=== PATIENT | female | born 1985 | race Caucasian/White ===

== ENCOUNTER 2017-01-14 17:46 | Emergency (ER) | payer BC ==
[~2017-01-14] VITALS: Ht 167.6 cm; Wt 98.9 kg
--- NOTE | ~2017-01-14 | EKG ---
[place] [address] [employer] 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
[2017-01-14 18:20] LABS: HEMOGLOBIN 12.5 gm/dL (12.0-15.0); MCHC 33.8 g/dL (28.0-37.0); MCV 79.8 fL (80.0-100.0); RBC 4.63 mil/uL (4.20-5.00); RDW 15.1 % (10.5-14.5); WBC 15.1 thou/uL (4.0-11.0)
[2017-01-14 18:23] LABS: ANION GAP 10 mmol/L (7-16); BUN 8 mg/dL (7-18); CALCIUM 9.1 mg/dL (8.5-10.1); CHLORIDE 104 mmol/L (98-107); CO2 24 mmol/L (21-32); CREATININE 0.8 mg/dL (0.6-1.0); GLUCOSE 126 mg/dL (74-106); POTASSIUM 3.8 mmol/L (3.5-5.1); SODIUM 138 mmol/L (136-145)
[2017-01-14 18:32] LABS: TROPONIN-I < 0.04 ng/mL (<0.04-0.07)
[2017-01-14] MEDS ORDERED: ZYRTEC10 M5 PO (18:39)
[2017-01-14] MEDS ORDERED: MELATONIN5 M1 PO (18:40)
[2017-01-14 19:43] LABS: URINE BILIRUBIN NEGATIVE (Negative); URINE BLOOD TRACE (Negative); URINE COLOR YELLOW; URINE GLUCOSE-RANDOM* NEGATIVE (Negative); URINE KETONES NEGATIVE (Negative); URINE PROTEIN (DIPSTICK) NEGATIVE (Negative); URINE SPECIFIC GRAVITY <= 1.005 (1.003-1.035); URINE UROBILINOGEN 0.2 E.U./dl (0.2-1.0)
[2017-01-14 19:50] LABS: URINE LEUKOCYTES-REFLEX TRACE (Negative)
[2017-01-14 20:17] VITALS: BP 135/81
== END 2017-01-14 20:18 | disposition home or self-care (01) ==
LOC: ER 17:46
PROVIDERS: Emergency Medicine
DX: R07.9 Chest pain, unspecified (principal); E28.2 Polycystic ovarian syndrome; F10.99 Alcohol use, unspecified with unspecified alcohol-induced disorder; Z87.891 Personal history of nicotine dependence; Z88.0 Allergy status to penicillin

== ENCOUNTER 2017-09-08 22:30 | Emergency (ER) | payer OTHER ==
[~2017-09-08] VITALS: Ht 167.6 cm; Wt 99.3 kg
[~2017-09-08 22:30] MED LIST: MELATONIN5 M1 PO; ZYRTEC10 M5 PO
[2017-09-08 23:32] LABS: URINE BILIRUBIN NEGATIVE (Negative); URINE BLOOD 1+ (Negative); URINE CLARITY CLEAR; URINE GLUCOSE-RANDOM* NEGATIVE (Negative); URINE KETONES NEGATIVE (Negative); URINE LEUKOCYTES-REFLEX NEGATIVE (Negative); URINE NITRITE-REFLEX NEGATIVE (Negative); URINE PROTEIN (DIPSTICK) NEGATIVE (Negative); URINE SPECIFIC GRAVITY <= 1.005 (1.005-1.035); URINE UROBILINOGEN 0.2 E.U./dl (0.2-1.0)
[2017-09-08 23:34] LABS: HEMATOCRIT 38.8 % (37.0-47.0); HEMOGLOBIN 12.5 gm/dL (12.0-15.0); MCH 26.2 pg (26.0-34.0); MCHC 32.2 g/dL (28.0-37.0); MCV 81.6 fL (80.0-100.0); PLATELET COUNT 508 thou/uL (150-400); RBC 4.76 mil/uL (4.20-5.00); RDW 15.1 % (10.5-14.5); WBC 21.9 thou/uL (4.0-11.0)
[2017-09-08 23:35] LABS: URINE COLOR STRAW
[2017-09-08 23:37] LABS: CALCIUM 9.6 mg/dL (8.5-10.1); POTASSIUM 3.8 mmol/L (3.5-5.1)
[2017-09-08 23:40] LABS: SQUAMOUS 0-3 Few /LPF (0-3)
[2017-09-08 23:41] LABS: BACTERIA-REFLEX None Seen /HPF (None Seen); CASTS None Seen /LPF (None Seen); CRYSTALS None Seen /LPF (None Seen); URINE RBC 0-2 Rare /HPF (0-2); URINE WBC-REFLEX 0-5 Rare /HPF (0-5)
[2017-09-08 23:59] LABS: ABSOLUTE NEUTROPHILS 19.7 thou/uL (1.4-8.2); ANISOCYTOSIS SLIGHT
[2017-09-09] MEDS ORDERED: ZOFRAN ODT4 MG PO (00:38)
[2017-09-09 00:59] VITALS: BP 141/89
== END 2017-09-09 00:59 | disposition home or self-care (01) ==
LOC: ER 22:30
PROVIDERS: Emergency Medicine
DX: T67.4XXA Heat exhaustion due to salt depletion, initial encounter (principal); D72.829 Elevated white blood cell count, unspecified; R11.2 Nausea with vomiting, unspecified; E28.2 Polycystic ovarian syndrome; Z88.0 Allergy status to penicillin; Z87.891 Personal history of nicotine dependence; X32.XXXA Exposure to sunlight, initial encounter; Y93.89 Activity, other specified; Y92.89 Other specified places as the place of occurrence of the external cause; Y99.8 Other external cause status

== ENCOUNTER 2017-11-06 21:38 | Emergency (ER) | payer OTHER ==
[~2017-11-06] VITALS: Ht 167.6 cm; Wt 99.8 kg
[~2017-11-06 21:38] MED LIST changes: +ZOFRAN ODT4 MG PO
[2017-11-06 21:50] VITALS: BP 154/96
[2017-11-06] MEDS ORDERED: SINGULAIR 10 MG10 M1 PO (21:55)
[2017-11-06] MEDS ORDERED: PRENATAL PO (21:55)
[2017-11-06] MEDS ORDERED: PREDNISOLO10 MG/5 ML PO (22:16)
[2017-11-06] MEDS ORDERED: CLINDAMYCI75 MG/5 M1 PO (22:16)
[2017-11-06] MEDS ORDERED: PROMETH-CODEIN 65 ML PO (22:16)
== END 2017-11-06 22:35 | disposition home or self-care (01) ==
LOC: ER 21:38
DX: J03.00 Acute streptococcal tonsillitis, unspecified (principal); Z88.0 Allergy status to penicillin; Z87.891 Personal history of nicotine dependence

== ENCOUNTER 2018-12-10 17:55 | Emergency (ER) | payer OTHER ==
[~2018-12-10] VITALS: Ht 167.6 cm; Wt 99.8 kg
[~2018-12-10 17:55] MED LIST changes: +CLINDAMYCI75 MG/5 M1 PO; +PREDNISOLO10 MG/5 ML PO; +PRENATAL PO; +PROMETH-CODEIN 65 ML PO; +SINGULAIR 10 MG10 M1 PO
[2018-12-10 18:19] LABS: URINE BILIRUBIN NEGATIVE (Negative); URINE BLOOD NEGATIVE (Negative); URINE CLARITY CLEAR; URINE COLOR YELLOW; URINE GLUCOSE-RANDOM* NEGATIVE (Negative); URINE KETONES NEGATIVE (Negative); URINE LEUKOCYTES NEGATIVE (Negative); URINE NITRITE NEGATIVE (Negative); URINE PROTEIN (DIPSTICK) TRACE (Negative); URINE SPECIFIC GRAVITY 1.015 (1.005-1.035); URINE UROBILINOGEN 0.2 E.U./dl (0.2-1.0)
[2018-12-10 18:38] LABS: ABSOLUTE NEUTROPHILS 10.9 thou/uL (1.4-8.2); BASOPHILS 0.3 % (0.0-2.0); EOSINOPHILS 0.7 % (0.0-3.0); HEMATOCRIT 38.4 % (37.0-47.0); HEMOGLOBIN 12.9 gm/dL (12.0-15.0); LYMPHOCYTES 22.9 % (24.0-44.0); MCH 26.6 pg (26.0-34.0); MCHC 33.7 g/dL (28.0-37.0); MCV 79.1 fL (80.0-100.0); MONOCYTES 5.2 % (1.0-8.0); PLATELET COUNT 512 thou/uL (150-400); POLYS 70.9 % (36.0-66.0); RBC 4.86 mil/uL (4.20-5.00); RDW 15.8 % (10.5-14.5); WBC 15.4 thou/uL (4.0-11.0)
[2018-12-10 18:46] LABS: ANION GAP 7 mmol/L (7-16); BUN 7 mg/dL (7-18); CALCIUM 9.2 mg/dL (8.5-10.1); CHLORIDE 102 mmol/L (98-107); CO2 28 mmol/L (21-32); CREATININE 0.8 mg/dL (0.6-1.0); GLUCOSE 107 mg/dL (74-106); POTASSIUM 3.7 mmol/L (3.5-5.1); SODIUM 137 mmol/L (136-145)
[2018-12-10 18:52] LABS: ALBUMIN 3.7 g/dL (3.4-5.0); DIRECT BILIRUBIN < 0.1 mg/dL (<0.1-0.3); LIPASE 172 U/L (73-393); SGOT 16 U/L (15-37); SGPT 20 U/L (30-65); TOTAL BILIRUBIN 0.1 mg/dL (<0.1-1.0); TOTAL PROTEIN 7.7 g/dL (6.4-8.2)
[2018-12-10] MEDS ORDERED: IBUPROFEN 600600 M1 PO (19:51)
[2018-12-10] MEDS ORDERED: ULTRAM 50MG TAB50 MG PO (19:51)
[2018-12-10 20:19] VITALS: BP 145/92
== END 2018-12-10 20:21 | disposition home or self-care (01) ==
LOC: ER 17:55
PROVIDERS: Nurse Practitioner
DX: N83.202 Unspecified ovarian cyst, left side (principal); Z87.891 Personal history of nicotine dependence; Z88.0 Allergy status to penicillin

== ENCOUNTER 2018-12-27 15:16 | Emergency (ER) | payer OTHER ==
[~2018-12-27] VITALS: Ht 165.1 cm; Wt 90.7 kg
[~2018-12-27 15:16] MED LIST changes: +IBUPROFEN 600600 M1 PO; +ULTRAM 50MG TAB50 MG PO
[2018-12-27 15:30] LABS: URINE BILIRUBIN NEGATIVE (Negative); URINE BLOOD TRACE (Negative); URINE CLARITY CLEAR; URINE COLOR YELLOW; URINE GLUCOSE-RANDOM* NEGATIVE (Negative); URINE KETONES NEGATIVE (Negative); URINE LEUKOCYTES-REFLEX NEGATIVE (Negative); URINE NITRITE-REFLEX NEGATIVE (Negative); URINE PROTEIN (DIPSTICK) NEGATIVE (Negative); URINE SPECIFIC GRAVITY <= 1.005 (1.005-1.035); URINE UROBILINOGEN 0.2 E.U./dl (0.2-1.0)
[2018-12-27 16:45] LABS: ABSOLUTE NEUTROPHILS 9.5 thou/uL (1.4-8.2); BASOPHILS 0.6 % (0.0-2.0); EOSINOPHILS 1.5 % (0.0-3.0); HEMATOCRIT 38.3 % (37.0-47.0); HEMOGLOBIN 12.8 gm/dL (12.0-15.0); MCH 26.5 pg (26.0-34.0); MCHC 33.5 g/dL (28.0-37.0); MCV 79.2 fL (80.0-100.0); MONOCYTES 5.5 % (1.0-8.0); PLATELET COUNT 454 thou/uL (150-400); POLYS 67.4 % (36.0-66.0); RBC 4.84 mil/uL (4.20-5.00); WBC 14.1 thou/uL (4.0-11.0)
[2018-12-27 16:55] LABS: CALCIUM 9.1 mg/dL (8.5-10.1); CREATININE 0.7 mg/dL (0.6-1.0); POTASSIUM 3.7 mmol/L (3.5-5.1)
[2018-12-27 17:01] LABS: ALBUMIN 3.8 g/dL (3.4-5.0); DIRECT BILIRUBIN < 0.1 mg/dL (<0.1-0.3); SGOT 18 U/L (15-37); SGPT 20 U/L (30-65); TOTAL BILIRUBIN 0.1 mg/dL (<0.1-1.0); TOTAL PROTEIN 7.2 g/dL (6.4-8.2)
[2018-12-27] MEDS ORDERED: NORCO 5-325 TA1 EAC1 PO (19:11)
[2018-12-27] MEDS ORDERED: ONDANSETRON ODT8 MG PO (19:11)
[2018-12-27] MEDS ORDERED: NAPROSYN500 MG PO (19:11)
[2018-12-27 19:40] VITALS: BP 144/90
== END 2018-12-27 19:50 | disposition home or self-care (01) ==
LOC: ER 15:16
PROVIDERS: Emergency Medicine
DX: N83.202 Unspecified ovarian cyst, left side (principal); D25.9 Leiomyoma of uterus, unspecified; Z85.810 Personal history of malignant neoplasm of tongue; Z88.0 Allergy status to penicillin; Z87.891 Personal history of nicotine dependence

== ENCOUNTER 2019-11-06 19:41 | Emergency (ER) | payer OTHER ==
[~2019-11-06] VITALS: Ht 167.6 cm; Wt 99.8 kg
[~2019-11-06 19:41] MED LIST changes: +NAPROSYN500 MG PO; +NORCO 5-325 TA1 EAC1 PO; +ONDANSETRON ODT8 MG PO
[2019-11-06] MEDS ORDERED: LISINOPRIL10 MG PO (20:06)
[2019-11-06] MEDS ORDERED: NORCO 5-325 TA1 EAC2 PO (21:43)
[2019-11-06] MEDS ORDERED: MOBIC15 MG PO (21:43)
[2019-11-06] MEDS ORDERED: ZOFRAN ODT4 MG PO (21:43)
[2019-11-06 22:07] VITALS: BP 159/72
== END 2019-11-06 22:08 | disposition home or self-care (01) ==
LOC: ER 19:41
DX: N83.201 Unspecified ovarian cyst, right side (principal); I10 Essential (primary) hypertension; N80.9 Endometriosis, unspecified; Z87.891 Personal history of nicotine dependence; Z88.0 Allergy status to penicillin

== ENCOUNTER 2020-02-16 07:12 | Emergency (ER) | payer OTHER ==
[~2020-02-16] VITALS: Ht 167.6 cm; Wt 99.8 kg
[~2020-02-16 07:12] MED LIST changes: +LISINOPRIL10 MG PO; +MOBIC15 MG PO; +NORCO 5-325 TA1 EAC2 PO
[2020-02-16] MEDS ORDERED: SPIRONOLACTONE25 MG PO (07:21)
[2020-02-16] MEDS ORDERED: SINGULAIR 10 MG10 M1 PO (07:21)
[2020-02-16] MEDS ORDERED: METOPROLOL SUCC25 M1 PO (07:21)
[2020-02-16] MEDS ORDERED: METFORMIN HCL500 M1 PO (07:21)
[2020-02-16] MEDS ORDERED: METFORMIN HCL500 MG PO (07:21)
[2020-02-16 07:49] LABS: ABSOLUTE NEUTROPHILS 8.7 thou/uL (1.4-8.2); BASOPHILS 0.5 % (0.0-2.0); EOSINOPHILS 1.7 % (0.0-3.0); HEMATOCRIT 38.4 % (37.0-47.0); HEMOGLOBIN 12.9 gm/dL (12.0-15.0); LYMPHOCYTES 22.4 % (24.0-44.0); MCH 26.8 pg (26.0-34.0); MCHC 33.6 g/dL (28.0-37.0); MCV 79.8 fL (80.0-100.0); MONOCYTES 4.6 % (1.0-8.0); PLATELET COUNT 552 thou/uL (150-400); POLYS 70.8 % (36.0-66.0); RBC 4.81 mil/uL (4.20-5.00); RDW 16.7 % (10.5-14.5); WBC 12.2 thou/uL (4.0-11.0)
[2020-02-16 07:53] LABS: CALCIUM 9.3 mg/dL (8.5-10.1); CREATININE 0.9 mg/dL (0.6-1.0); POTASSIUM 3.8 mmol/L (3.5-5.1)
[2020-02-16 07:59] LABS: ALBUMIN 3.8 g/dL (3.4-5.0); MAGNESIUM 1.7 mg/dL (1.8-2.4); TOTAL BILIRUBIN 0.2 mg/dL (0.2-1.0); TOTAL PROTEIN 7.7 g/dL (6.4-8.2)
[2020-02-16] MEDS ORDERED: COMPAZINE5 M1 PO (08:46)
[2020-02-16 08:55] VITALS: BP 119/64
== END 2020-02-16 09:02 | disposition home or self-care (01) ==
LOC: ER 07:12
PROVIDERS: Emergency Medicine
DX: R11.2 Nausea with vomiting, unspecified (principal); I10 Essential (primary) hypertension; Z79.899 Other long term (current) drug therapy; Z87.891 Personal history of nicotine dependence; Z88.0 Allergy status to penicillin; Z20.828 Contact with and (suspected) exposure to other viral communicable diseases

== ENCOUNTER 2020-03-21 17:59 | Emergency (ER) | payer OTHER ==
[~2020-03-21] VITALS: Ht 167.6 cm; Wt 99.8 kg
[~2020-03-21 17:59] MED LIST changes: +COMPAZINE5 M1 PO; +METFORMIN HCL500 M1 PO; +METFORMIN HCL500 MG PO; +METOPROLOL SUCC25 M1 PO; +SPIRONOLACTONE25 MG PO
[2020-03-21] MEDS ORDERED: TESSALON PERLE100 MG PO (19:22)
[2020-03-21] MEDS ORDERED: VENTOLIN HFA 1818 GM INH (19:22)
[2020-03-21 19:30] VITALS: BP 143/91
== END 2020-03-21 19:30 | disposition home or self-care (01) ==
LOC: ER 17:59
DX: J06.9 Acute upper respiratory infection, unspecified (principal); J02.9 Acute pharyngitis, unspecified; I10 Essential (primary) hypertension; Z79.1 Long term (current) use of non-steroidal anti-inflammatories (NSAID); Z79.899 Other long term (current) drug therapy; Z87.891 Personal history of nicotine dependence; Z88.0 Allergy status to penicillin; Z88.8 Allergy status to other drugs, medicaments and biological substances

== ENCOUNTER 2020-11-24 10:23 | Emergency (ER) | payer OTHER ==
[~2020-11-24] VITALS: Ht 167.6 cm; Wt 90.7 kg
[~2020-11-24 10:23] MED LIST changes: +TESSALON PERLE100 MG PO; +VENTOLIN HFA 1818 GM INH
[2020-11-24 11:23] VITALS: BP 133/69
== END 2020-11-24 11:28 | disposition home or self-care (01) ==
LOC: ER 10:23
DX: B34.9 Viral infection, unspecified (principal); I10 Essential (primary) hypertension; Z20.822 Contact with and (suspected) exposure to COVID-19; Z79.51 Long term (current) use of inhaled steroids; Z79.1 Long term (current) use of non-steroidal anti-inflammatories (NSAID); Z79.84 Long term (current) use of oral hypoglycemic drugs; Z79.899 Other long term (current) drug therapy; Z88.0 Allergy status to penicillin; Z91.09 Other allergy status, other than to drugs and biological substances; Z88.8 Allergy status to other drugs, medicaments and biological substances; Z87.891 Personal history of nicotine dependence

== ENCOUNTER 2021-02-26 09:27 | Emergency (ER) | payer OTHER ==
[~2021-02-26] VITALS: Ht 167.6 cm; Wt 92.1 kg
[2021-02-26] MEDS ORDERED: ASA81BEC PO (09:32)
[2021-02-26 09:57] LABS: URINE BILIRUBIN NEGATIVE (Negative); URINE BLOOD 2+ (Negative); URINE CLARITY CLEAR; URINE COLOR YELLOW; URINE GLUCOSE-RANDOM* NEGATIVE (Negative); URINE KETONES NEGATIVE (Negative); URINE LEUKOCYTES-REFLEX NEGATIVE (Negative); URINE NITRITE-REFLEX NEGATIVE (Negative); URINE PROTEIN (DIPSTICK) NEGATIVE (Negative); URINE UROBILINOGEN 0.2 E.U./dl (0.2-1.0)
[2021-02-26 10:08] LABS: BACTERIA-REFLEX 1-9 Few /HPF (None Seen); CASTS None Seen /LPF (None Seen); CRYSTALS None Seen /LPF (None Seen); SQUAMOUS 4-10 Moderate /LPF (0-3)
[2021-02-26 10:09] LABS: URINE RBC 1-2 Rare /HPF (NONE SEEN); URINE WBC-REFLEX 0-5 Rare /HPF (0-5)
[2021-02-26 10:12] LABS: ABSOLUTE NEUTROPHILS 7.4 thou/uL (1.4-8.2); BASOPHILS 0.5 % (0.0-2.0); EOSINOPHILS 1.1 % (0.0-3.0); HEMATOCRIT 37.5 % (37.0-47.0); HEMOGLOBIN 12.2 gm/dL (12.0-15.0); LYMPHOCYTES 25.2 % (24.0-44.0); MCH 26.7 pg (26.0-34.0); MCHC 32.6 g/dL (28.0-37.0); MCV 81.9 fL (80.0-100.0); MONOCYTES 5.6 % (1.0-8.0); PLATELET COUNT 521 thou/uL (150-400); POLYS 67.6 % (36.0-66.0); RBC 4.58 mil/uL (4.20-5.00); RDW 16.2 % (10.5-14.5)
[2021-02-26 10:41] LABS: ANION GAP 11 mmol/L (7-16); BUN 10 mg/dL (7-18); CALCIUM 9.2 mg/dL (8.5-10.1); CHLORIDE 104 mmol/L (98-107); CO2 25 mmol/L (21-32); CREATININE 0.7 mg/dL (0.6-1.0); GLUCOSE 123 mg/dL (74-106); POTASSIUM 4.1 mmol/L (3.5-5.1); SODIUM 140 mmol/L (136-145)
[2021-02-26 10:51] LABS: ALBUMIN 3.4 g/dL (3.4-5.0); LIPASE 135 U/L (73-393); SGOT 16 U/L (15-37); SGPT 20 U/L (14-59); TOTAL BILIRUBIN 0.2 mg/dL (0.2-1.0); TOTAL PROTEIN 7.3 g/dL (6.4-8.2)
[2021-02-26 13:00] VITALS: BP 100/49
[2021-02-26] MEDS ORDERED: CYCLOBENZAPRINE5 MG PO (13:00)
[2021-02-26] MEDS ORDERED: [UNRECOGNIZED DRUG - OTHER] TOP (13:00)
--- NOTE | 2021-02-27 07:27 | EKG ---
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
== END 2021-02-26 13:00 | disposition home or self-care (01) ==
LOC: ER 09:27
PROVIDERS: Emergency Medicine
DX: R10.11 Right upper quadrant pain (principal); R10.9 Unspecified abdominal pain; I10 Essential (primary) hypertension; Z91.09 Other allergy status, other than to drugs and biological substances; Z79.51 Long term (current) use of inhaled steroids; Z79.891 Long term (current) use of opiate analgesic; Z79.84 Long term (current) use of oral hypoglycemic drugs; Z79.82 Long term (current) use of aspirin; Z79.1 Long term (current) use of non-steroidal anti-inflammatories (NSAID); Z79.899 Other long term (current) drug therapy; Z88.0 Allergy status to penicillin; Z88.8 Allergy status to other drugs, medicaments and biological substances; Z87.891 Personal history of nicotine dependence